=== PATIENT | female | born 1995 | race Caucasian/White ===

== ENCOUNTER 2017-11-26 03:20 | Emergency (ER) | payer OTHER, MEDICAID, SELFPAY ==
[2017-11-26 03:30] VITALS: BP 107/66; PULSE 77; RESP 14; TEMP 36.6; O2SAT 97; BMI 18.1
--- NOTE | 2017-11-26 03:30 | ED.DENTAL ---
HPI - Dental/Oral General Chief complaint: Dental/Oral Stated complaint: left side jaw pain x1 day Time Seen by Provider: 11/26/17 03:30 Source: patient Mode of arrival: ambulatory Limitations: no limitations History of Present Illness HPI Narrative: 22F non smoker presents with chief complaint of left lower dental pain over the past 3 months, but much worse over the day. She denies facial swelling. She denies fever, chills. She denies injury. MD Complaint: tooth pain 1. Onset (ago): month(s) Duration: constant Severity: moderate Relieving factors: nothing Exacerbating factors: chewing, cold and heat Context: history of dental caries Treatment prior to arrival: none Related Data Previous Rx's Medication Instructions Recorded norgestimate-ethinyl estradiol 1 tab PO QDAY #3 pac 09/02/16 [Ortho Tri-Cyclen LO (28)] alprazolam 0.25 mg PO Q8HP PRN #30 tab 10/29/16 bupropion HCl [Wellbutrin SR] 150 mg PO BID #60 tab 10/29/16 levonorgestrel 1.5 mg tablet 1.5 mg PO ONCE #1 tab 10/14/17 tramadol 50 mg tablet See Label Instructions PO Q6H PRN 11/02/17 #100 tab amoxicillin 500 mg PO TID #30 cap 11/26/17 Allergies Allergy/AdvReac Type Severity Reaction Status Date / Time No Known Drug Allergies Allergy Unknown Verified 11/26/17 03:29 [NO KNOWN DRUG ALLERGIES] Review of Systems Review of Systems All systems reviewed & are unremarkable except as noted in HPI and below Constitutional Denies chills, Denies fever(s), Denies lethargy and Denies weakness Eyes Denies change in vision, Denies eye discharge, Denies irritation and Denies loss of vision ENT Ears, Nose, Mouth, and Throat: Denies change in voice, Reports dental pain, Denies neck pain and Denies sore throat Cardiovascular Denies chest pain, Denies irregular heart rhythm, Denies lightheadedness, Denies palpitations, Denies dyspnea, Denies dyspnea on exertion and Denies orthopnea Respiratory Denies cough, Denies dyspnea, Denies dyspnea on exertion and Denies wheezing Gastrointestinal Gastrointestinal: Denies abdominal pain, Denies change in bowel habits, Denies diarrhea, Denies nausea and Denies vomiting Genitourinary Denies hematuria, Denies flank pain, Denies urinary incontinence and Denies urinary urgency Musculoskeletal Denies neck pain Integumentary/Breasts Denies pruritus, Denies erythema, Denies rash and Denies wounds Neurologic Denies confusion, Denies loss of vision and Denies weakness Psychiatric Denies anxiety, Denies confusion, Denies depression, Denies homicidal ideation and Denies suicidal ideation Endocrine Denies palpitations Hematologic/Lymphatic Denies easy bruising Allergic/Immunologic Denies wheezing [facility] Social History Smoking Status: Former smoker Exam Narrative Exam Narrative: GEN: AOx3 and in mild distress ORAL: multiple caries, no swelling or abscess EYES: Pupils are equal, round, and reactive to light and accommodation. Extraoccular muscles are intact bilaterally. There is no subconjunctival hemorrhage or exudate. CHEST: Lungs are clear to auscultation bilaterally and free of wheezes, rales, or rhonchi. Heart rate is regular rhythm, there are no murmurs, clicks, rubs, or gallops. There is no chest wall tenderness. ABD: Abdomen is soft and nontender. There is no guarding or rebound. Bowel sounds are normal in all 4 quadrants. There is no mass or organomegaly. EXT: Full painless ROM of all extremities with no loss of sensation or strength. SKIN: Warm, pink, and dry. No erythema or rash Initial Vital Signs Initial Vital Signs: Vital Signs Temperature 97.8 F 11/26/17 03:30 Pulse Rate 77 11/26/17 03:30 Respiratory Rate 14 11/26/17 03:30 Blood Pressure 107/66 11/26/17 03:30 Pulse Oximetry 97 11/26/17 03:30 Procedures Nerve Block Nerve Block 1: Time out performed: Yes Local Anesthetic: lidocaine 1% and bupivacaine 0.5% Amount of anesthesia used (mL): 4 Side: left Intraoral Nerve Block: inferior alveolar Procedure Successful: Yes Patient Tolerated Procedure: Well Complications: none Course Orders Ordered: Discontinued Medications Amoxicillin ( Trimox 250mg Prepack) 1 bottle MISC SEEINSTR ONE Stop: 11/26/17 03:48 Last Admin: 11/26/17 03:50 Dose: 1 bottle Vital Signs - 8 hr 11/26/17 03:30 Temperature 97.8 F Pulse Rate 77 Respiratory Rate 14 Blood Pressure 107/66 Pulse Oximetry 97 Discharge Plan Departure Patient Disposition: Home Clinical Impression: Pain due to dental caries Instructions: DI for Dental Pain Activity Restrictions/Additional Instructions: *You have been diagnosed with [ dental pain ] *What to do: *Take medications as directed *Follow up with your dentist as soon as possible, call for an appointment. Let them know you were seen in the Emergency Department and that we ask that you be seen in follow up *Return to ER if you should have any new, worsening or concerning symptoms Prescriptions: New amoxicillin 500 mg capsule 500 mg PO TID Qty: 30 RF: 0 No Action norgestimate-ethinyl estradiol [Ortho Tri-Cyclen LO (28)] 1 EACH tablet 1 tab PO QDAY Qty: 3 RF: 0 alprazolam 0.25 MG tablet 0.25 mg PO Q8HP PRNQty: 30 RF: 0 bupropion HCl [Wellbutrin SR] 150 MG tablet extended release 12 hr 150 mg PO BID Qty: 60 RF: 6 levonorgestrel [Plan B One-Step] 1.5 mg tablet 1.5 mg PO ONCE Qty: 1 RF: 0 tramadol 50 mg tablet See Label Instructions PO Q6H PRN (Reason: pain) Qty: 100 RF: 0 Referrals: Santana Colbert DMD [Physician] - Gregorio Irene MD [Primary Care Provider] -
[2017-11-26] MEDS: AMOXICILLIN 250 MG PREPACK 1 BOTTLE MISC (03:50)
== END 2017-11-26 03:54 | disposition home or self-care (01) ==
PROVIDERS: Emergency Provider Emergency Medicine; Family Provider Family Medicine; PCP Family Medicine
DX: K02.9 Dental caries, unspecified (principal)
CPT/HCPCS: 64450; 99282; 99283

== ENCOUNTER → 2019-04-05 11:53 | Outpatient (CLI) | payer OTHER, MEDICAID, SELFPAY ==
[2019-04-05 12:56] LABS: Add Manual Diff / Slide Review NO; Basophils Absolute Auto 100 /uL (0-100); Basophils Percent Auto 0.8 % (0-2); Eosinophils Absolute Auto 400 /uL (0-450); Eosinophils Percent Auto 4.5 % (2-4); Hematocrit 40.5 % (36-46); Hemoglobin 13.8 g/dL (12.0-16.0); Lymphocytes Absolute Auto 2300 /uL (1100-4500); Lymphocytes Percent Auto 25.8 % (25-40); Mean Corpuscular Volume 91.2 fL (80-100); Monocytes Absolute Auto 600 /uL (0-900); Monocytes Percent Auto 6.8 % (3-14); Neutrophils Absolute Auto 5400 /uL (1500-7000); Neutrophils Percent Auto 62.1 % (50-75); Platelet Count 250 X10^3/uL (150-400); Red Blood Cell Count 4.45 X10^6/uL (4.0-5.2); Red Cell Distribution Width 12.4 % (11.6-14.8); White Blood Cell Count 8.7 X10^3/uL (4.5-11.0)
[2019-04-05 13:50] LABS: Alanine Aminotransferase 19 IU/L (<35); Albumin 4.9 g/dL (3.5-5.0); Albumin Globulin Ratio 1.6 (1.0-2.8); Alkaline Phosphatase 59 U/L (38-126); Aspartate Aminotransferase 23 IU/L (14-36); Blood Urea Nitrogen 14 mg/dL (7-17); Calcium 9.8 mg/dL (8.4-10.2); Carbon Dioxide 25 mmol/L (22-32); Chloride 105 mmol/L (98-107); Estimated Glomerular Filt Rate > 60.0 mL/min (>60); Glucose 84 mg/dL (70-100); HEMOLYSIS < 15 (0-50); Potassium 4.9 mmol/L (3.4-5.1); Sodium 140 mmol/L (137-145); Total Protein 7.9 g/dL (6.3-8.2)
[2019-04-05 14:21] LABS: TSH w/ Reflex to FT4 2.16 uIU/mL (0.47-4.68)
== END ==
PROVIDERS: Family Provider Family Medicine; PCP Family Medicine; Referring Provider Family Medicine; Visit Provider Family Medicine
DX: F41.9 Anxiety disorder, unspecified (principal)
CPT/HCPCS: 36415; 80053; 84443; 85025